=== PATIENT | male | born 1985 | race Caucasian/White ===

== ENCOUNTER 2020-06-22 14:37 | Outpatient (REF) | payer BC, SELFPAY | END 2020-06-22 14:38 | disposition home or self-care (01) | LOC: HO.BBR 14:37 | PROVIDERS: Visit Provider Internal Medicine Gastroenterology | DX: Z13.89 Encounter for screening for other disorder (principal) ==

== ENCOUNTER 2020-06-22 15:18 | Outpatient (REF) | payer SELFPAY ==
[2020-06-22 20:26] LABS: Cholesterol 166 mg/dL
== END 2020-06-22 15:19 | disposition home or self-care (01) ==
LOC: HO.LNC 15:18
PROVIDERS: Visit Provider Pathology Anatomic Pathology & Clinical Pathology
DX: Z13.89 Encounter for screening for other disorder (principal)
CPT/HCPCS: 36415; 82465

== ENCOUNTER 2020-07-06 14:11 | Outpatient (REF) | payer BC, SELFPAY | END 2020-07-06 14:12 | disposition home or self-care (01) | LOC: HO.BBR 14:11 | PROVIDERS: Visit Provider Internal Medicine Gastroenterology | DX: Z13.89 Encounter for screening for other disorder (principal) ==

== ENCOUNTER 2020-07-20 14:01 | Outpatient (REF) | payer BC, SELFPAY | END 2020-07-20 14:02 | disposition home or self-care (01) | LOC: HO.BBR 14:01 | PROVIDERS: Visit Provider Internal Medicine Gastroenterology | DX: Z13.89 Encounter for screening for other disorder (principal) ==

== ENCOUNTER 2020-08-31 14:08 | Outpatient (REF) | payer BC, SELFPAY | END 2020-08-31 14:09 | disposition home or self-care (01) | LOC: HO.BBR 14:08 | PROVIDERS: Visit Provider Internal Medicine Gastroenterology | DX: Z13.89 Encounter for screening for other disorder (principal) ==

== ENCOUNTER 2020-09-12 14:54 | Outpatient (REF) | payer BC, SELFPAY | END 2020-09-12 14:55 | disposition home or self-care (01) | LOC: HO.BBR 14:54 | PROVIDERS: Visit Provider Internal Medicine Gastroenterology | DX: Z13.89 Encounter for screening for other disorder (principal) ==

== ENCOUNTER 2020-10-03 12:56 | Outpatient (REF) | payer BC, SELFPAY | END 2020-10-03 12:57 | disposition home or self-care (01) | LOC: HO.BBR 12:56 | PROVIDERS: Visit Provider Internal Medicine Gastroenterology | DX: Z13.89 Encounter for screening for other disorder (principal) ==

== ENCOUNTER 2021-01-22 14:14 | Outpatient (REF) | payer BC, SELFPAY | END 2021-01-22 14:15 | disposition home or self-care (01) | LOC: HO.BBR 14:14 | PROVIDERS: PCP Internal Medicine; Visit Provider Internal Medicine Gastroenterology | DX: Z13.89 Encounter for screening for other disorder (principal) ==

== ENCOUNTER 2021-02-26 10:47 | Outpatient (REF) | payer BC, SELFPAY | END 2021-02-26 10:48 | disposition home or self-care (01) | LOC: HO.BBR 10:47 | PROVIDERS: PCP Internal Medicine; Visit Provider Internal Medicine Gastroenterology | DX: Z13.89 Encounter for screening for other disorder (principal) ==

== ENCOUNTER 2021-07-31 15:35 | Outpatient (REF) | payer BC, SELFPAY | END 2021-07-31 15:36 | disposition home or self-care (01) | LOC: HO.BBR 15:35 | PROVIDERS: Visit Provider Internal Medicine Gastroenterology | DX: Z13.89 Encounter for screening for other disorder (principal) ==

== ENCOUNTER 2021-08-14 15:27 | Outpatient (REF) | payer BC, SELFPAY ==
[2021-08-14 15:45] LABS: MANUAL DIFF FLAG NO
[2021-08-14 15:46] LABS: Basophils Absolute Auto 0.1 X10*3/uL (0.0-0.2); Basophils Percent Auto 0.9 % (0-2); Eosinophils Absolute Auto 0.1 X10*3/uL (0.0-0.4); Eosinophils Percent Auto 1.3 % (0-4); Hematocrit 40.7 % (42.0-52.0); Imm Gran Abs Auto 0.02 X10*3/uL (0.00-0.03); Imm Gran Pct Auto 0.3 % (0.0-0.4); Lymphocytes Percent Auto 25.9 % (20-40); Mean Corpuscular HGB Conc 36.9 g/dl (31.0-36.0); Mean Corpuscular Hemoglobin 32.2 pg (27.0-33.0); Mean Corpuscular Volume 87.3 fL (80.0-98.0); Mean Platelet Volume 9.7 fL (9.4-12.4); Monocytes Absolute Auto 0.8 X10*3/uL (0.1-1.2); Monocytes Percent Auto 10.1 % (2-11); Neutrophils Absolute Auto 4.7 x10*3/uL (2.0-8.3); Neutrophils Percent Auto 61.5 % (45-73); Platelet Count 283 X10*3/uL (160-400); Red Blood Count 4.66 X10*6/uL (4.60-5.80); Red Cell Distribution Width 12.6 % (11.0-16.0); White Blood Count 7.6 X10*3/uL (4.8-10.8)
[2021-08-14 16:25] LABS: Iron 103 mcg/dL (45-160); Percent Iron Saturation 39 % (15-50); Total Iron Binding Capacity 266 mcg/dL (228-428); Unsaturated Iron Binding 163 ug/dL
[2021-08-14 16:45] LABS: Ferritin 37 ng/mL (20-250)
== END 2021-08-14 15:28 | disposition home or self-care (01) ==
LOC: HO.BBR 15:27
PROVIDERS: Visit Provider Internal Medicine Gastroenterology
DX: E83.110 Hereditary hemochromatosis (principal)
CPT/HCPCS: 36415; 82728; 83540; 85025

== ENCOUNTER 2022-04-18 09:57 | Outpatient (REF) | payer BC, SELFPAY ==
[2022-04-18 10:13] LABS: MANUAL DIFF FLAG NO
[2022-04-18 10:19] LABS: Basophils Absolute Auto 0.1 X10*3/uL (0.0-0.2); Basophils Percent Auto 0.8 % (0-2); Eosinophils Absolute Auto 0.1 X10*3/uL (0.0-0.4); Eosinophils Percent Auto 1.2 % (0-4); Hematocrit 39.8 % (42.0-52.0); Hemoglobin 14.8 g/dl (14.0-18.0); Imm Gran Abs Auto 0.01 X10*3/uL (0.00-0.03); Imm Gran Pct Auto 0.2 % (0.0-0.4); Lymphocytes Absolute Auto 1.7 X10*3/uL (1.2-4.9); Lymphocytes Percent Auto 28.4 % (20-40); Mean Corpuscular HGB Conc 37.2 g/dl (31.0-36.0); Mean Corpuscular Hemoglobin 32.2 pg (27.0-33.0); Mean Corpuscular Volume 86.7 fL (80.0-98.0); Mean Platelet Volume 9.9 fL (9.4-12.4); Monocytes Absolute Auto 0.6 X10*3/uL (0.1-1.2); Monocytes Percent Auto 9.8 % (2-11); Neutrophils Absolute Auto 3.5 x10*3/uL (2.0-8.3); Neutrophils Percent Auto 59.6 % (45-73); Platelet Count 262 X10*3/uL (160-400); Red Blood Count 4.59 X10*6/uL (4.60-5.80); Red Cell Distribution Width 11.8 % (11.0-16.0); White Blood Count 5.9 X10*3/uL (4.8-10.8)
[2022-04-18 11:10] LABS: Ferritin 102 ng/mL (20-250)
[2022-04-18 11:14] LABS: Iron 152 mcg/dL (45-160); Percent Iron Saturation 65 % (15-50); Total Iron Binding Capacity 234 mcg/dL (228-428); Unsaturated Iron Binding 82 ug/dL
== END 2022-04-18 09:58 | disposition home or self-care (01) ==
LOC: HO.BBR 09:57
PROVIDERS: Visit Provider Physician Assistant
DX: E83.110 Hereditary hemochromatosis (principal)
CPT/HCPCS: 36415; 82728; 83540; 85025

== ENCOUNTER 2022-05-02 12:06 | Outpatient (REF) | payer BC, SELFPAY ==
[2022-05-02 12:24] LABS: MANUAL DIFF FLAG NO
[2022-05-02 12:27] LABS: Basophils Absolute Auto 0.1 X10*3/uL (0.0-0.2); Basophils Percent Auto 1.1 % (0-2); Eosinophils Absolute Auto 0.1 X10*3/uL (0.0-0.4); Eosinophils Percent Auto 1.7 % (0-4); Hematocrit 40.7 % (42.0-52.0); Hemoglobin 14.9 g/dl (14.0-18.0); Imm Gran Abs Auto 0.01 X10*3/uL (0.00-0.03); Imm Gran Pct Auto 0.1 % (0.0-0.4); Lymphocytes Absolute Auto 1.8 X10*3/uL (1.2-4.9); Lymphocytes Percent Auto 24.9 % (20-40); Mean Corpuscular HGB Conc 36.6 g/dl (31.0-36.0); Mean Corpuscular Hemoglobin 32.1 pg (27.0-33.0); Mean Corpuscular Volume 87.7 fL (80.0-98.0); Mean Platelet Volume 9.8 fL (9.4-12.4); Monocytes Absolute Auto 0.6 X10*3/uL (0.1-1.2); Neutrophils Absolute Auto 4.5 x10*3/uL (2.0-8.3); Neutrophils Percent Auto 63.2 % (45-73); Platelet Count 288 X10*3/uL (160-400); Red Blood Count 4.64 X10*6/uL (4.60-5.80); Red Cell Distribution Width 12.1 % (11.0-16.0); White Blood Count 7.1 X10*3/uL (4.8-10.8)
[2022-05-02 13:16] LABS: Ferritin 62 ng/mL (20-250); Iron 100 mcg/dL (45-160); Percent Iron Saturation 42 % (15-50); Total Iron Binding Capacity 237 mcg/dL (228-428); Unsaturated Iron Binding 137 ug/dL
== END 2022-05-02 12:07 | disposition home or self-care (01) ==
LOC: HO.BBR 12:06
PROVIDERS: Visit Provider Physician Assistant
DX: E83.110 Hereditary hemochromatosis (principal)
CPT/HCPCS: 36415; 82728; 83540; 85025

== ENCOUNTER 2022-05-16 13:00 | Outpatient (REF) | payer BC, SELFPAY ==
[2022-05-16 13:18] LABS: MANUAL DIFF FLAG NO
[2022-05-16 13:20] LABS: Basophils Absolute Auto 0.1 X10*3/uL (0.0-0.2); Basophils Percent Auto 0.9 % (0-2); Eosinophils Absolute Auto 0.1 X10*3/uL (0.0-0.4); Eosinophils Percent Auto 1.4 % (0-4); Hematocrit 37.7 % (42.0-52.0); Hemoglobin 13.7 g/dl (14.0-18.0); Imm Gran Abs Auto 0.01 X10*3/uL (0.00-0.03); Imm Gran Pct Auto 0.2 % (0.0-0.4); Lymphocytes Absolute Auto 1.8 X10*3/uL (1.2-4.9); Lymphocytes Percent Auto 28.2 % (20-40); Mean Corpuscular HGB Conc 36.3 g/dl (31.0-36.0); Mean Corpuscular Hemoglobin 31.9 pg (27.0-33.0); Mean Corpuscular Volume 87.7 fL (80.0-98.0); Mean Platelet Volume 10.1 fL (9.4-12.4); Monocytes Absolute Auto 0.6 X10*3/uL (0.1-1.2); Monocytes Percent Auto 9.5 % (2-11); Neutrophils Absolute Auto 3.9 x10*3/uL (2.0-8.3); Neutrophils Percent Auto 59.8 % (45-73); Platelet Count 255 X10*3/uL (160-400); Red Cell Distribution Width 12.2 % (11.0-16.0); White Blood Count 6.5 X10*3/uL (4.8-10.8)
[2022-05-16 14:40] LABS: Iron 96 mcg/dL (45-160); Percent Iron Saturation 43 % (15-50); Total Iron Binding Capacity 224 mcg/dL (228-428); Unsaturated Iron Binding 128 ug/dL
[2022-05-16 15:01] LABS: Ferritin 36 ng/mL (20-250)
== END 2022-05-16 13:01 | disposition home or self-care (01) ==
LOC: HO.BBR 13:00
PROVIDERS: PCP Internal Medicine; Visit Provider Physician Assistant
DX: E83.110 Hereditary hemochromatosis (principal)
CPT/HCPCS: 36415; 82728; 83540; 85025

== ENCOUNTER 2022-07-24 12:02 | Outpatient (REF) | payer BC, SELFPAY | END 2022-07-24 12:03 | disposition home or self-care (01) | LOC: HO.BBR 12:02 | PROVIDERS: PCP Internal Medicine; Visit Provider Internal Medicine Gastroenterology | DX: Z13.89 Encounter for screening for other disorder (principal) ==

== ENCOUNTER 2022-10-02 14:52 | Outpatient (REF) | payer BC, SELFPAY | END 2022-10-02 14:53 | disposition home or self-care (01) | LOC: HO.BBR 14:52 | PROVIDERS: Visit Provider Internal Medicine Gastroenterology | DX: Z13.89 Encounter for screening for other disorder (principal) ==

== ENCOUNTER 2022-11-21 14:00 | Outpatient (REF) | payer BC, SELFPAY | END 2022-11-21 14:01 | disposition home or self-care (01) | LOC: HO.BBR 14:00 | PROVIDERS: Visit Provider Internal Medicine Gastroenterology | DX: Z13.89 Encounter for screening for other disorder (principal) ==

== ENCOUNTER 2022-12-26 10:50 | Outpatient (REF) | payer BC, SELFPAY | END 2022-12-26 10:51 | disposition home or self-care (01) | LOC: HO.BBR 10:50 | PROVIDERS: Visit Provider Internal Medicine Gastroenterology | DX: Z13.89 Encounter for screening for other disorder (principal) ==

== ENCOUNTER 2023-06-20 08:54 | Outpatient (REF) | payer BC, SELFPAY ==
[2023-06-20 09:19] LABS: MANUAL DIFF FLAG NO
[2023-06-20 09:20] LABS: Basophils Absolute Auto 0.1 X10*3/uL (0.0-0.2); Basophils Percent Auto 1.1 % (0-2); Eosinophils Absolute Auto 0.1 X10*3/uL (0.0-0.4); Eosinophils Percent Auto 1.6 % (0-4); Hematocrit 41.1 % (42.0-52.0); Hemoglobin 15.2 g/dl (14.0-18.0); Imm Gran Abs Auto 0.02 X10*3/uL (0.00-0.03); Imm Gran Pct Auto 0.3 % (0.0-0.4); Lymphocytes Absolute Auto 1.5 X10*3/uL (1.2-4.9); Lymphocytes Percent Auto 24.6 % (20-40); Mean Corpuscular Hemoglobin 32.1 pg (27.0-33.0); Mean Corpuscular Volume 86.9 fL (80.0-98.0); Mean Platelet Volume 9.6 fL (9.4-12.4); Monocytes Absolute Auto 0.7 X10*3/uL (0.1-1.2); Monocytes Percent Auto 11.8 % (2-11); Neutrophils Absolute Auto 3.8 x10*3/uL (2.0-8.3); Neutrophils Percent Auto 60.6 % (45-73); Platelet Count 246 X10*3/uL (160-400); Red Blood Count 4.73 X10*6/uL (4.60-5.80); Red Cell Distribution Width 12.6 % (11.0-16.0); White Blood Count 6.2 X10*3/uL (4.8-10.8)
[2023-06-20 10:51] LABS: Iron 211 mcg/dL (45-160); Percent Iron Saturation 89 % (15-50); Total Iron Binding Capacity 236 mcg/dL (228-428); Unsaturated Iron Binding < 25 ug/dL
[2023-06-20 10:57] LABS: Ferritin 65 ng/mL (20-250)
== END 2023-06-20 08:55 | disposition home or self-care (01) ==
LOC: HO.BBR 08:54
PROVIDERS: PCP Internal Medicine; Visit Provider Internal Medicine Gastroenterology
DX: E83.110 Hereditary hemochromatosis (principal)
CPT/HCPCS: 36415; 82728; 83540; 85025

== ENCOUNTER 2023-07-24 08:55 | Outpatient (REF) | payer BC, SELFPAY | END 2023-07-24 08:56 | disposition home or self-care (01) | LOC: HO.BBR 08:55 | PROVIDERS: PCP Internal Medicine; Visit Provider Internal Medicine Gastroenterology | DX: Z13.89 Encounter for screening for other disorder (principal) ==

== ENCOUNTER 2024-09-10 13:06 | Outpatient (REF) | payer BC, SELFPAY ==
[2024-09-10 13:17] LABS: MANUAL DIFF FLAG NO
[2024-09-10 13:19] LABS: Basophils Absolute Auto 0.1 X10*3/uL (0.0-0.2); Basophils Percent Auto 1.2 % (0-2); Eosinophils Absolute Auto 0.1 X10*3/uL (0.0-0.4); Eosinophils Percent Auto 1.5 % (0-4); Hematocrit 41.1 % (42.0-52.0); Hemoglobin 15.3 g/dl (14.0-18.0); Imm Gran Abs Auto 0.02 X10*3/uL (0.00-0.03); Imm Gran Pct Auto 0.3 % (0.0-0.4); Lymphocytes Absolute Auto 2.1 X10*3/uL (1.2-4.9); Lymphocytes Percent Auto 29.1 % (20-40); Mean Corpuscular HGB Conc 37.2 g/dl (31.0-36.0); Mean Corpuscular Hemoglobin 32.4 pg (27.0-33.0); Mean Corpuscular Volume 87.1 fL (80.0-98.0); Mean Platelet Volume 9.6 fL (9.4-12.4); Monocytes Absolute Auto 0.9 X10*3/uL (0.1-1.2); Monocytes Percent Auto 12.1 % (2-11); Neutrophils Percent Auto 55.8 % (45-73); Platelet Count 249 X10*3/uL (160-400); Red Blood Count 4.72 X10*6/uL (4.60-5.80); Red Cell Distribution Width 11.9 % (11.0-16.0); White Blood Count 7.2 X10*3/uL (4.8-10.8)
--- OUTSIDE RECORDS SUMMARY | 2024-09-10 13:26 | XMS_ITS | Clinical Summary ---
Author Organization [facility] Address [address] [place] [phone] Phone Care Team Providers Care Software Writer Name Role Phone Unavailable Primary Care Provider Unavailabl e Immunizations Immunization Administration Dates Next Due DTaP 5 11/04/1988, 6,06/05/1984,03/26,01/06/1984 Hep B, ped/adol 12/12/2000,01/03/1999,10/10/1998 IPV 11/04/1988, 6,03/26/1984,01/05 MMR 11/18/1994,04/16/1985 Meningococcal Polysaccharide 11/11/2003 Td (adult) (MBL), 2 Lf tetan us toxoid, PF, adsorbed 11/11/2003 Varicella 05/21/1986 Family History Relation Name Status Comments Father Alive Father: Alive a nd well Mother Alive Mother: Alive a nd well Social History Tobacco Use Types Packs/Day Years Used Date Smoking Tobacco: Never Assessed Sex and Gender Information Value Date Recorded Sex Assigned at Not on file Legal Sex Male 4:09 PM EDT Gender Identity Not on file Sexual Orientation Not on file Plan of Treatment Health Maintenance Due Date Last Done Comments Varicella Vaccines (2 of 2 - 2-dose childhood series) 12/16/1994 05/21/1986 DTaP,Tdap,and Td Vaccines (6 - Tdap) 11/12/2003 11/11/2003, 11/04/1988, 09/14/1985, Additional history exists Influenza Vaccines (#1) 2023 COVID-19 Vaccine ( season) 2024 IPV Vaccines Completed 11/04/1988, 05/10/1985, 03/26/1984, Additional history exists MMR Vaccines Completed 11/18/1994, 04/16/1985 Hepatitis B Vaccines Completed 12/12/2000, 01/03/1999, 10/10/1998 HIB Vaccines Aged Out No longer eligi ble based on patient's age to complete this topic HPV Vaccines Aged Out No longer eligi ble based on patient's age to complete this topic Hepatitis A Vaccines Aged Out No long er eligible based on patient's age to complete this topic Men B Vaccine Aged Out No longer elig ible based on patient's age to complete this topic Meningococcal Vaccine Aged Out No cindy jonathan eligible based on patient's age to complete this topic Pneumococcal Vaccine Aged Out No long er eligible based on patient's age to complete this topic
--- OUTSIDE RECORDS SUMMARY | 2024-09-10 13:26 | XMS_ITS | Encounter Summary ---
Author Organization [facility] Address [address] [place] [address] Care Team Providers Care Hydramatic Specialist Name Role Phone Iván Beauchamp DO Primary Care Provider [phone] Reason for Visit * Reason Comments yearly f/u Encounter Details Date Type Department Care Team (Latest Contact Info) Description 09/10/2024 9:10 AM EDT Office Visit Gastroenterology - [address] [facility] [address] [phone] Hemanth Rojas PA [address] [address] Hereditary hemochromatosis (CMS/HCC V24) (Primary Dx); Chronic idiopathic constipation Social History Tobacco Use Types Packs/Day Years Used Date Smoking Tobacco: Never Assessed Smokeless Tobacco: Current Tobacco Cessation:Ready to Q uit: Not Asked; Counseling Given: Not Answered Alcohol Use Standard Drinks/Week Comments Not Asked 0 (1 standard drink = 0.6 oz pur e alcohol) 6 beers twice a week Sex and Gender Information Value Date Recorded Sex Assigned at Not on file Legal Sex Male 11:08 AM EST Gender Identity Not on file Sexual Orientation Not on file documented as of this encounter Last Filed Vital Signs Vital Sign Reading Time Taken Comments Blood Pressure - - Pulse - - Temperature - - Respiratory Rate - - Oxygen Saturation - - Inhaled Oxygen Concentration - - Weight 81.6 kg (180 lb) 09/10/2024 9:00 AM EDT Height 175.3 cm (5' 9 ) 09/10/2024 9:00 AM EDT Body Mass Index 26.58 09/10/2024 9:00 AM EDT documented in this encounter Progress Notes * ABBE Bhatti - 09/10/2024 9:10 AM EDTAssociated Problem(s): Hereditary hemochromatosis (CMS/HCC V24) Patient has not been to a phlebotomy in 6 to 7 months A new order was provided today for him to take to [facility] as he has an appointment at 1 PM A written order was also given for CBC, ferritin and iron studies The importance of compliance with phlebotomy was discussed and the risk of complications, includingcirrhosis and the complications that accompany this The negative impact on his liver due to alcohol was also discussed. * ABBE Bhatti - 09/10/2024 9:10 AM EDT Subjective Last Colononscopy/EGD: Colon/EGD 11/2006 - unremarkable HPI: Sai Arroyo is a 38 y.o. old male who was originally referred to us by Iván Beauchamp DO now presents to the gastroenterology department today for a follow up of hereditary hemochromatosis. He was seen last August by Dr. Mccloud for his routine appointment regarding the history of genetic hemochromatosis. He was doing well and was going for phlebotomy monthly. He estimates that he stop ped going about 6 or 7 months ago. He was just tired of going all the time. He is feeling well at this time. He is trying to follow a healthy diet and drink a lot of water. He goes to the gym 6-7 times a week. He has occasional constipation. He had no other concerns today. He has an appointment for phlebotomy later today although he needs a updated order and a lab rec for blood work. We discussedhow with compliance with time he may be able to space out the phlebotomies. We also discussed the risk of continued alcohol use with his history of hemochromatosis and the impact that would have on his liver and the risk for cirrhosis and other complications. LABS: No recent labs Review of Systems Constitutional: Negative. Respiratory: Negative. Cardiovascular: Negative. Gastrointestinal: Positive for constipation. Genitourinary: Negative. PROBLEM LIST: Patient Active Problem List Diagnosis Gastroesophageal reflux disease without esophagitis Hereditary hemochromatosis (CMS/HCC V24) PAST MEDICAL HISTORY: No past medical history on file. PAST SURGICAL HISTORY: Past Surgical History: Procedure Laterality Date APPENDECTOMY URETER SURGERY SOCIAL HISTORY: Social History Tobacco Use Smoking status: Not on file Smokeless tobacco: Not on file Substance Use Topics Alcohol use: Not on file FAMILY HISTORY: Family History Problem Relation Name Age of Onset Other (hereditary hemochromatosis) Father Other (hereditary hemochromatosis) Sister Other (hereditary hemochromatosis) Daughter Other (hereditary hemochromatosis) Daughter ACTIVE MEDICATIONS: No current outpatient medications on file. No current facility-administered medications for this visit. ALLERGIES: Allergies Allergen Reactions Penicillin Anaphylaxis, Hives, Rash and Swelling Amoxicillin Iodinated Contrast Media Hives Wt Readings from Last 1 Encounters: 09/10/24 0900 81.6 kg (180 lb) Physical Exam Constitutional: Appearance: Normal appearance. HENT: Head: Normocephalic. Cardiovascular: Rate and Rhythm: Normal rate and regular rhythm. Pulmonary: Effort: Pulmonary effort is normal. Breath sounds: Normal breath sounds. Abdominal: General: Bowel sounds are normal. There is no distension. Palpations: Abdomen is soft. There is no mass. Tenderness: There is no abdominal tenderness. There is no guarding or rebound. Skin: General: Skin is warm. Neurological: Mental Status: He is alert and oriented to person, place, and time. Psychiatric: Mood and Affect: Mood normal. Behavior: Behavior normal. IMPRESSION: 1. Hereditary hemochromatosis (CMS/HCC V24) 2. Chronic idiopathic constipation Assessment/Plan Assessment & Plan Hereditary hemochromatosis (CMS/HCC V24) Patient has not been to a phlebotomy in 6 to 7 months A new order was provided today for him to take to [facility] as he has an appointment at 1 PM A written order was also given for CBC, ferritin and iron studies The importance of compliance with phlebotomy was discussed and the risk of complications, includingcirrhosis and the complications that accompany this The negative impact on his liver due to alcohol was also discussed. Chronic idiopathic constipation Benefiber 2 tsp qd Stool softner qd 6 mth f/u ABBE Bhatti 12:38 PM EDT documented in this encounter Plan of Treatment Not on file documented as of this encounter Visit Diagnoses Diagnosis Hereditary hemochromatosis (CMS/HCC V24)- Primary Hereditary hemochromatosis Chronic idiopathic constipation Unspecified constipation documented in this encounter Care Teams Hydramatic Specialist Relationship Specialty Start Date End Date Iván Beauchamp DO [address] [place] [phone] PCP - General Internal Medicine 09/08/24 documented as of this encounter
--- OUTSIDE RECORDS SUMMARY | 2024-09-10 13:26 | XMS_ITS | Encounter Summary ---
Author Organization [facility] Address [address] [place] [phone] Phone Care Team Providers Care Casing Running Machine Tender Name Role Phone Unavailable Primary Care Provider Unavailabl e Encounter Details Date Type Department Care Team (Late st Contact Info) Description 03/13/2017 Conversion Encounter [facility] - [address] [address] Social History Tobacco Use Types Packs/Day Years Used Date Smoking Tobacco: Never Assessed Sex and Gender Information Value Date Recorded Sex Assigned at Not on file Legal Sex Male 4:09 PM EDT Gender Identity Not on file Sexual Orientation Not on file documented as of this encounter Plan of Treatment Not on file documented as of this encounter Visit Diagnoses Not on filedocumented in this encounter
--- OUTSIDE RECORDS SUMMARY | 2024-09-10 13:26 | XMS_ITS | Clinical Summary ---
Author Organization [address] [place] Address [address] [place] [address] Phone Care Team Providers Care Sammying Machine Operator Name Role Phone Iván Beauchamp DO Primary Care Provider [phone] Allergies Active Allergy Reactions Criticality Noted Date Comments Amoxicillin 07/07/2024 Iodinated Contrast Media Hives 09/10/2024 Penicillin Anaphylaxis,Hives,Ra sh,Swell ing High 07/07/1987 Medications No known medications Active Problems Problem Noted Date Diagnosed Date Gastroesophageal reflux disease without esophagi tis 09/10/2024 Hereditary hemochromatosis (CMS/HCC V24) 025 Assessment & Plan (09/10/2024 12:46 PM EDT): Patient has not been to a phlebotomy in 6 to 7 months A new order was provided today for him to take to [facility] as he has an appointment at 1 PM A written order was also given for CBC, ferritin and iron studies The importance of compliance with phlebotomy was discussed and the risk of complications, including cirrhosis and the complications that accompany this The negative impact on his liver due to alcohol was also discussed. Encounters Date Type Department Care Team Description 09/10/2024 9:10 AM EDT Office Visit Gastroenterology - [address] [phone] Hemanth Rojas PA Hereditary hemochromatosis (CMS/HCC V24) (Primary Dx); Chronic idiopathic constipation from Last 3 Months Surgical History Surgery Date Site/Laterality Comments APPENDECTOMY URETER SURGERY Family History Medical History Relation Name Comments hereditary hemochromatosis Daughter 1 hereditary hemochromatosis Daughter 2 hereditary hemochromatosis Father hereditary hemochromatosis Sister Relation Name Status Comments Daughter 1 Daughter 2 Alive Father Sister Social History Tobacco Use Types Packs/Day Years [...] on file Sexual Orientation Not on file Obstetrics History Last Filed Vital Signs Vital Sign Reading Time Taken Comments Blood Pressure - - Pulse - - Temperature - - Respiratory Rate - - Oxygen Saturation - - Inhaled Oxygen Concentration - - Weight 81.6 kg (180 lb) 09/10/2024 9:00 AM EDT Height 175.3 cm (5' 9 ) 09/10/2024 9:00 AM EDT Body Mass Index 26.58 09/10/2024 9:00 AM EDT Plan of Treatment Health Maintenance Due Date Last Done Comments DTaP,Tdap,and Td Vaccines (7 - Td or Tdap) 11/10/2013 11/11/2003, 11/04/1988, 09/14/1985, Additional history exists Cholesterol Screening (Lipid Panel) 04/09/2022 Depression Screening 04/09/2022 HIV Screening 04/09/2022 Hepatitis C Screening 04/09/2022 Social Influencers of Health Screening 04/09/2022 COVID-19 Vaccine ( season) 2024 09/14/2020, 08/17/2020 Influenza Vaccine (Season Ended) 2025 Varicella Vaccines Aged Out 05/21/1986 No longer eligible based on patient's age to complete this topic IPV Vaccines Completed 11/04/1988, 10/1985, 03/26/1984, Additional history exists MMR Vaccines Completed 11/18/1994, 04/16/1985 Hepatitis B Vaccines Completed 12/12/2000, 01/03/1999, 10/10/1998 Meningococcal ACWY Vaccine Aged Out 11/11/2003 N o longer eligible based on patient's age to complete this topic HIB Vaccines Aged Out No longer eligi ble based on patient's age to complete this topic HPV Vaccines Aged Out No longer eligi ble based on patient's age to complete this topic Hepatitis A Vaccines Aged Out No long er eligible based on patient's age to complete this topic Meningococcal B Vaccine Aged Out No l onger eligible based on patient's age to complete this topic Pneumococcal Vaccine: Pediatrics (0 to 5 Years) and At-Risk Patients (6 to 64 Years) Aged Out No longer eligible based on patient's age to complete this topic RSV Immunization Patients Under 20 months Aged Out No longer eligible based on patient's age to complete this topic Insurance [facility] Care Teams Sammying Machine Operator Relationship Specialty Start Date End Date Iván Beauchamp DO [address] [place] [phone] PCP - General Internal Medicine 09/08/24
[2024-09-10 14:10] LABS: Iron 185 mcg/dL (45-160); Percent Iron Saturation 83 % (15-50); Total Iron Binding Capacity 223 mcg/dL (228-428); Unsaturated Iron Binding 38 ug/dL
[2024-09-10 14:27] LABS: Ferritin 215 ng/mL (20-250)
== END 2024-09-10 13:07 | disposition home or self-care (01) ==
LOC: HO.BBR 13:06
PROVIDERS: Visit Provider Internal Medicine Gastroenterology
DX: E83.110 Hereditary hemochromatosis (principal)
CPT/HCPCS: 36415; 82728; 83540; 85025